=== PATIENT | female | born 1955 | race Caucasian/White ===

== ENCOUNTER 2022-08-16 09:02 | Outpatient (CLI) | payer OTHER, SELFPAY ==
--- NOTE | 2022-08-16 09:27 | USCV_ITS ---
Yissel Paris Age: 66 Gender: F : 1955 Exam Date: 08/16/2022 09:44 Ordering Phys: Sarah Hurley Technologist: DARLYN [place] [facility] [place]: [place]UR BP: 123 / 70 HR: 67 Rhythm: Sinus Technical Quality: Adequate MEASUREMENTS (Male / Female) Normal Values 2D ECHO LVOT Diameter 1.9 cm LV Ejection Fraction MOD 2C 65.3 % LV Ejection Fraction 2C AL 67.2 % LA Diameter 2.3 cm LA Width 2.4 cm LA Height 3.0 cm RA Width 2.8 cm RA Height 2.7 cm Aorta at Sinotubular Diameter 2.2 cm IVC Diameter 0.9 cm M-MODE Aortic Annulus Diameter 2.3 cm LA Ao Ratio MM 0.8 MV E Point Septal Separation 0.1 cm DOPPLER AV Peak Velocity 166.0 cm/s LVOT Peak Velocity 107.0 cm/s AV Area Cont Eq vti 1.9 cm squared AV Area Cont Eq pk 1.8 cm squared MV Peak Velocity 147.0 cm/s MV Area PHT 2.2 cm squared Mitral E to A Ratio 1.1 MV E' Velocity 67.5 cm/s Mitral E to MV E' Ratio 15.6 Mitral E to LV E' Lateral Ratio 21.6 Mitral E to LV E' Septal Ratio 12.3 TR Peak Velocity 250.0 cm/s TR Peak Gradient 25.0 mmHg TR Mean Velocity 199.5 cm/s TR Mean Gradient 16.7 mmHg TR Velocity Time Integral 77.3 cm TV Peak E Velocity 49.0 cm/s Right Atrial Pressure 3.0 mmHg Pulmonary Artery Systolic Pressu 28.0 mmHg PV Peak Velocity 83.0 cm/s RV Acceleration Time 0.1 s RV Ejection Time 0.3 s RV AcT/ET 0.4 FINDINGS Left Ventricle Normal left ventricular size and systolic function, EF 62 %. Mild left ventricular hypertrophy. No regional wall motion abnormalities. Grade II/IV diastolic dysfunction, moderately elevated filling pressures. Right Ventricle The right ventricle is normal in size and function. Right Atrium The right atrium is normal in size. Left Atrium The left atrium is normal in size. Mitral Valve Mild mitral annular calcification. Aortic Valve Thickened aortic valve. Aortic valve sclerosis. Tricuspid Valve No gross abnormalities noted Pulmonic Valve No gross abnormalities noted Pericardium Normal pericardium without effusion. Aorta Normal ascending aorta dimension. IVC The inferior vena cava appears normal. CONCLUSIONS Normal left ventricular size and systolic function, EF 62 %. Mild left ventricular hypertrophy. No regional wall motion abnormalities. Grade II/IV diastolic dysfunction, moderately elevated filling pressures. Features of aortic valve sclerosis Estimated pulmonary artery peak systolic pressure 28 mmHg There is no pericardial effusion. There are no intracardiac masses. Dr Sudeep Cardoza MD FACC (Electronically Signed) Final Date: 18 Aug 2022 10:23 S
== END 2022-08-16 09:03 | disposition home or self-care (01) ==
LOC: RAD 09:07
PROVIDERS: PCP Nurse Practitioner Family; Visit Provider Nurse Practitioner Family
DX: R01.1 Cardiac murmur, unspecified (principal)
CPT/HCPCS: 93306